=== PATIENT | female | born 1955 | race African-American/Black ===

== ENCOUNTER 2017-04-07 23:24 | Outpatient (CLI) | payer MEDICAID | END 2017-04-07 23:25 | disposition critical access hospital (66) | LOC: EMS 23:24 | PROVIDERS: ATTEND Surgery | DX: I46.9 Cardiac arrest, cause unspecified (principal) | CPT/HCPCS: A0425; A0433 ==

== ENCOUNTER 2017-04-07 23:40 | Emergency (ER) | payer MEDICAID ==
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
--- NOTE | 2017-04-27 14:34 | ED Physician Documentation ---
ED Addendum - Addendum Addendum: 04/27/17 14:34 As a service to the family I completed the certificate with a cause of as "unknown natural causes" so that the body could be released to the family as Dr. Tan is not imminently working. I would not otherwise involved in the care of this patient.
== END 2017-04-08 01:59 | disposition expired ==
LOC: EDUNIT# → ED 23:40
DX: I46.9 Cardiac arrest, cause unspecified (principal); R40.2432 Glasgow coma scale score 3-8, at arrival to emergency department
CPT/HCPCS: 92950; 99281; 99285; 99291